=== PATIENT | female | born 1985 | race Two or more races ===

== ENCOUNTER 2018-01-12 10:18 | Day surgery (SDC) | payer OTHER ==
[2018-01-12] MEDS ORDERED: LIDOCAINE 2% (SDV) 5 ML INJ (11:13)
[2018-01-12] MEDS ORDERED: PROPOFOL 40 ML (11:13)
== END 2018-01-12 12:39 | disposition home or self-care (01) ==
LOC: GIL 10:18
DX: Z12.11 Encounter for screening for malignant neoplasm of colon (principal); K64.8 Other hemorrhoids; E03.9 Hypothyroidism, unspecified
CPT/HCPCS: 45378; 84703

== ENCOUNTER 2018-04-14 06:13 | Inpatient (IN) | payer OTHER ==
[2018-04-14] MEDS: CEFAZOLIN 2 GM/50 ML (PMX) 50 ML IVPB (06:00)
[~2018-04-14 06:13] MED LIST: DEXTROSE 5%-LR 1,000 ML IV
[2018-04-14] MEDS ORDERED: GLYCOPYRROLATE 0.4 MG INJ (06:29)
[2018-04-14] MEDS ORDERED: MIDAZOLAM 1 MG/ML 2 ML INJ (06:29)
[2018-04-14] MEDS ORDERED: LIDOCAINE 2% (SDV) 5 ML INJ (06:29)
[2018-04-14] MEDS ORDERED: ROCURONIUM 50 MG INJ (06:29)
[2018-04-14] MEDS ORDERED: NEOSTIGMINE 3 MG/3 ML SYRINGE (06:29)
[2018-04-14] MEDS ORDERED: PROPOFOL 20 ML (06:29)
[2018-04-14] MEDS ORDERED: FENTAnyl 50 MCG/ML VIAL (06:29)
[2018-04-14] MEDS ORDERED: OXYCODONE/ACETAMINOPHEN (5/325) TAB PO ×4 (06:30→10:00)
[2018-04-14] MEDS ORDERED: morphine (1 MG/ML) 10ML SYRINGE IV ×6 (06:30→10:00)
[2018-04-14] MEDS ORDERED: MIDAZOLAM 1 MG/ML 2 ML INJ IV ×2 (06:30→10:30)
[2018-04-14] MEDS ORDERED: EPHEDrine SULFATE 50 MG/5 ML SYG IV ×2 (06:30→10:00)
[2018-04-14] MEDS ORDERED: FENTAnyl 50 MCG/ML VIAL IV ×4 (06:30→10:00)
[2018-04-14] MEDS ORDERED: hydrALAzine 20 MG INJ IV ×2 (06:30→10:00)
[2018-04-14] MEDS ORDERED: DIPHENHYDRAMINE 50 MG INJ IV ×2 (06:30→10:30)
[2018-04-14] MEDS ORDERED: DEXAMETHASONE 4 MG/ML 1 ML INJ (06:30)
[2018-04-14] MEDS ORDERED: HYDROmorphONE 1 MG/5 ML IV SYRINGE IV ×6 (06:30→10:00)
[2018-04-14] MEDS ORDERED: MEPERIDINE 25 MG INJ IV ×2 (06:30→10:00)
[2018-04-14] MEDS ORDERED: ATROPINE 1 MG/10 ML SYRINGE IV ×2 (06:30→10:00)
[2018-04-14] MEDS ORDERED: ONDANSETRON 4 MG INJ (06:30)
[2018-04-14] MEDS ORDERED: ONDANSETRON 4 MG INJ IV ×2 (06:30→10:00)
[2018-04-14] MEDS ORDERED: LABETALOL HCL 20MG INJ IV ×2 (06:30→10:00)
[2018-04-14] MEDS ORDERED: morphine SULFATE/PF (10 MG/10 ML) INJ (06:46)
[2018-04-14] MEDS ORDERED: BUPIVACAINE 0.75%/DEXT (SPINAL) 2 ML INJ (06:47)
[2018-04-14] MEDS ORDERED: CEFAZOLIN 1 GM INJ (07:00)
[2018-04-14] MEDS ORDERED: ONDANSETRON INJ 6 MG in DEXTROSE 5% 50 ML IVPB (09:30)
[2018-04-14] MEDS ORDERED: DIPHENHYDRAMINE 50 MG CAP PO (09:30)
[2018-04-14] MEDS ORDERED: ZOLPIDEM 5 MG TAB PO (09:30)
[2018-04-14] MEDS: KETOROLAC 30 MG INJ IV ×3 (09:30→21:38)
[2018-04-14] MEDS: DEXTROSE 5%-LR 1,000 ML IV (10:00)
[2018-04-14] MEDS: METOCLOPRAMIDE 10 MG TAB PO ×2 (11:53→18:02)
[2018-04-14] MEDS: LACTATED RINGER'S 1,000 ML IV ×3 (11:54→21:37)
[2018-04-14] MEDS: CEFAZOLIN 1 GM/50 ML (PMX) 50 ML IVPB ×2 (14:54→21:37)
[2018-04-15] MEDS: METOCLOPRAMIDE 10 MG TAB PO ×4 (00:01→17:02)
[2018-04-15] MEDS: KETOROLAC 30 MG INJ IV ×4 (03:39→22:27)
[2018-04-15 05:49] LABS: ADD MAN DIFF? NO
[2018-04-15 06:01] LABS: BASOPHILS % 0.1 % (0.0-2.0); HEMATOCRIT 32.2 % (37.0-47.0); HEMOGLOBIN 10.9 g/dl (12.0-16.0); LYMPHOCYTES # 1.8 10^3/ul (0.8-2.9); LYMPHOCYTES % 13.3 % (15.0-51.0); MEAN CORPUSCULAR HEMOGLOBIN 29.7 pg (29.0-33.0); MEAN CORPUSCULAR HGB CONC 33.9 g/dl (32.0-37.0); MEAN CORPUSCULAR VOLUME 87.7 fl (82.0-101.0); MEAN PLATELET VOLUME 11.6 fl (7.4-10.4); MONOCYTE # 0.8 10^3/ul (0.3-0.9); MONOCYTES % 6.4 % (0.0-11.0); NEUTROPHIL # 10.5 10^3/ul (1.6-7.5); NEUTROPHILS % 79.8 % (39.0-77.0); PLATELET COUNT 183 10^3/UL (140-415); RED BLOOD COUNT 3.67 10^6/ul (4.20-5.40); RED CELL DISTRIBUTION WIDTH 12.6 % (11.5-14.5)
[2018-04-15 06:01] LABS: WHITE BLOOD COUNT 13.2 10^3/ul (4.8-10.8)
[2018-04-15 06:35] LABS: ANION GAP 11 (8-16); BLOOD UREA NITROGEN 5 mg/dl (7-20); CARBON DIOXIDE 24 mmol/L (21-31); CHLORIDE 107 mmol/L (97-110); CREATININE 0.52 mg/dl (0.44-1.00); SODIUM 138 mmol/L (135-144)
[2018-04-15] MEDS: CEFAZOLIN 1 GM/50 ML (PMX) 50 ML IVPB ×3 (06:41→21:25)
[2018-04-15] MEDS: LACTATED RINGER'S 1,000 ML IV (06:43)
[2018-04-15] MEDS: LEVOTHYROXINE 112 MCG TAB PO (07:00)
[2018-04-15] MEDS ORDERED: LEVOTHYROXINE 112 MCG TAB PO (07:00)
[2018-04-15] MEDS: HYDROCODONE/APAP (5/325) TAB PO ×2 (10:24→17:40)
[2018-04-15] MEDS: HYDROmorphONE 0.5 MG/0.5 ML SYG IV (21:25)
[2018-04-16] MEDS: LEVOTHYROXINE 112 MCG TAB PO (02:05)
[2018-04-16] MEDS: KETOROLAC 30 MG INJ IV ×2 (03:30→09:41)
[2018-04-16] MEDS: HYDROCODONE/APAP (5/325) TAB PO (05:20)
[2018-04-16] MEDS: METOCLOPRAMIDE 10 MG TAB PO ×2 (05:31)
== END 2018-04-16 11:50 | disposition home or self-care (01) | DRG 745 ==
LOC: REC 06:13 → MS1 11:40
PROC: 0UB94ZX Excision of Uterus, Percutaneous Endoscopic Approach, Diagnostic (ICD-10-PCS; principal; 2018-04-14 07:30)
PROC: 0DNW4ZZ Release Peritoneum, Percutaneous Endoscopic Approach (ICD-10-PCS; 2018-04-14 07:30)
DX: N80.3 Endometriosis of pelvic peritoneum (principal); N80.0 Endometriosis of uterus; D25.9 Leiomyoma of uterus, unspecified; R10.2 Pelvic and perineal pain
CPT/HCPCS: 80051; 82565; 84520; 84703; 85025; 88305; 93005